=== PATIENT | female | born 1940 | race Caucasian/White ===

== ENCOUNTER → 2021-09-26 | Outpatient (CLI) | payer MEDICARE | LOC: M.CT 09-19 14:23 | DX: S30.0XXA Contusion of lower back and pelvis, initial encounter (principal); M16.0 Bilateral primary osteoarthritis of hip; M47.816 Spondylosis without myelopathy or radiculopathy, lumbar region; M47.817 Spondylosis without myelopathy or radiculopathy, lumbosacral region; I70.8 Atherosclerosis of other arteries; M47.818 Spondylosis without myelopathy or radiculopathy, sacral and sacrococcygeal region; X58.XXXA Exposure to other specified factors, initial encounter; Y93.89 Activity, other specified; Y92.89 Other specified places as the place of occurrence of the external cause; Y99.8 Other external cause status ==